=== PATIENT | female | born 1990 | race Caucasian/White ===

== ENCOUNTER 2020-12-14 11:35 | Outpatient (REF) | payer MEDICAID, SELFPAY ==
[2020-12-16 15:51] LABS: COVID-19 RT-PCR UVMMC Result Indeterminate (Negative)
== END 2020-12-14 11:36 | disposition home or self-care (01) ==
LOC: LBN 11:35
PROVIDERS: Visit Provider Nurse Practitioner Family
DX: Z20.822 Contact with and (suspected) exposure to COVID-19 (principal); J06.9 Acute upper respiratory infection, unspecified
CPT/HCPCS: U0003